=== PATIENT | female | born 1985 | race Caucasian/White ===

== ENCOUNTER 2019-10-23 00:21 | Inpatient (IN) ==
[2019-10-23] MEDS ORDERED: Ondansetron 4 MG/2 ML VIAL IVP PRN (02:31)
[2019-10-23] MEDS ORDERED: Naloxone 0.4 MG/ML INJ IVP PRN (02:31)
[2019-10-23] MEDS ORDERED: 0.9 % Sodium Chloride 1,000 ML IVC ONE (02:37)
[2019-10-23] MEDS ORDERED: Acetaminophen IV 1,000 MG/100 ML INFUS..BTL IVPB ONE (02:37)
[2019-10-23] MEDS ORDERED: Isovue-370 500 ML BOTTLE IVP ONE (02:41)
[2019-10-23 04:14] LABS: ABG Base Excess 2 mEq/L (-2 to 3); ABG HCO3 24 mEq/L (21-27); ABG Oxygen Saturation 97 % (95-98); ABG PCO2 28 mmHg (35-45); ABG PH 7.54 pH Units (7.32-7.45); ABG PO2 76 mmHg (85-104); ABG TCO2 25 mEq/L (20-26)
[2019-10-23] MEDS: Azithromycin 500 MG in 0.9 % Sodium Chloride 250 ML IVPB SCH (06:46)
[2019-10-23] MEDS: *HR* Heparin 5,000 UNIT/ML VIAL SQ SCH ×2 (06:48→17:37)
[2019-10-23 07:59] LABS: Alanine Aminotransferase 25 Units/L (7-52); Albumin 2.7 g/dL (3.5-5.7); Albumin/Globulin Ratio 0.9 (1.1-2.2); Alkaline Phosphatase 70 Units/L (34-104); Aspartate Amino Transferase 33 Units/L (13-39); BUN/Creatinine Ratio 75 (6-26); Bilirubin,Total 0.6 mg/dL (0.3-1.0); Blood Urea Nitrogen 15 mg/dL (6-20); Carbon Dioxide 22 mEq/L (23-29); Chloride 109 mEq/L (98-107); Glucose 105 mg/dL (70-105); Magnesium 1.7 mg/dL (1.6-2.6); Osmolality,Calculated 293 (280-300); Potassium 4.7 mEq/L (3.5-5.1); Sodium 141 mEq/L (136-145); Total Protein 5.7 g/dL (6.4-8.9); eGFR For African Americans > 60 (> 60); eGFR For Non-African Americans > 60 (> 60)
[2019-10-23 09:00] LABS: Adenovirus Not Detected (Not Detect); Bordetella Pertussis Not Detected (Not Detect); Chlamydophila pneumoniae Not Detected (Not Detect); Coronavirus 229E Not Detected (Not Detect); Coronavirus HKU1 Not Detected (Not Detect); Coronavirus NL63 Not Detected (Not Detect); Coronavirus OC43 Not Detected (Not Detect); Human Metapneumovirus Not Detected (Not Detect); Human Rhinovirus/Enterovirus Not Detected (Not Detect); Influenza A Subtype 2009 H1 Not Detected (Not Detect); Influenza B Not Detected (Not Detect); Mycoplasma pneumoniae Not Detected (Not Detect); Parainfluenza Virus 1 Not Detected (Not Detect); Parainfluenza Virus 2 Not Detected (Not Detect); Parainfluenza Virus 3 Not Detected (Not Detect); Parainfluenza Virus 4 Not Detected (Not Detect); Respiratory Syncytial Virus Not Detected (Not Detect)
[2019-10-23] MEDS ORDERED: levoFLOXacin 750 MG/150 ML 750 MG/150 ML BAG IVPB SCH (09:00)
[2019-10-23] MEDS ORDERED: Aminoglycoside Consult 1 EACH MC ONE (09:27)
[2019-10-23] MEDS: Dexmedetomidine HCl 400 MCG/100 ML MLS IVC SCH (10:38)
[2019-10-23] MEDS: Piperacillin/Tazobactam 3.375 GM in 0.9 % Sodium Chloride Mini Bag 100 ML IVPB SCH ×3 (10:38→23:39)
[2019-10-23 12:20] LABS: Basophils % 0.3 %; Hematocrit 33.7 % (35.3-44.9); Hemoglobin 10.6 g/dL (11.5-15.4); Immature Granulocytes % 1.4 % (0-4); Lymphocytes # 1.6 K/mcL (0.6-4.6); Lymphocytes % 15.3 %; Mean Corpuscular HGB Conc 31.5 g/dL (31.6-35.5); Mean Corpuscular Hemoglobin 29.9 pg (28.0-33.3); Mean Corpuscular Volume 95.2 fL (83.0-100.0); Mean Platelet Volume 10.5 fL (9.4-12.4); Monocytes # 1.2 K/mcL (0.0-1.3); Monocytes % 11.2 %; Neutrophils # 7.5 K/mcL (1.6-8.9); Platelet Count 213 K/mcL (140-400); Red Blood Count 3.54 M/mcL (3.82-4.97); Red Cell Distribution Width 15.1 % (11.5-14.5); Segmented Neutrophils % 71.8 %; White Blood Count 10.5 K/mcL (4.3-11.1)
[2019-10-23] MEDS ORDERED: Ringers Solution, Lactated 1,000 ML IVC SCH (18:30)
[2019-10-23] MEDS: levETIRAcetam 500 MG/5 ML UDC GTUBE SCH (23:38)
[2019-10-23] MEDS: Valproic Acid Oral Soln 250 MG/5 ML UDC GTUBE SCH (23:38)
[2019-10-24] MEDS: Azithromycin 500 MG in 0.9 % Sodium Chloride 250 ML IVPB SCH (02:16)
[2019-10-24] MEDS: Dexmedetomidine HCl 400 MCG/100 ML MLS IVC SCH (02:18)
[2019-10-24 02:27] LABS: Red Cell Distribution Width 14.9 % (11.5-14.5)
[2019-10-24 02:28] LABS: Basophils # 0.1 K/mcL (0.0-0.2); Basophils % 0.7 %; Hematocrit 33.5 % (35.3-44.9); Immature Granulocytes % 1.6 % (0-4); Lymphocytes # 1.4 K/mcL (0.6-4.6); Lymphocytes % 18.1 %; Mean Corpuscular HGB Conc 31.3 g/dL (31.6-35.5); Mean Corpuscular Hemoglobin 30.9 pg (28.0-33.3); Mean Corpuscular Volume 98.5 fL (83.0-100.0); Mean Platelet Volume 11.5 fL (9.4-12.4); Monocytes # 0.8 K/mcL (0.0-1.3); Monocytes % 10.9 %; Neutrophils # 5.2 K/mcL (1.6-8.9); Platelet Count 190 K/mcL (140-400); Segmented Neutrophils % 68.7 %; White Blood Count 7.6 K/mcL (4.3-11.1)
[2019-10-24 02:29] LABS: Hemoglobin 10.5 g/dL (11.5-15.4)
[2019-10-24 02:40] LABS: BUN/Creatinine Ratio 71 (6-26); Blood Urea Nitrogen 15 mg/dL (6-20); Calcium 8.6 mg/dL (8.6-10.3); Carbon Dioxide 26 mEq/L (23-29); Chloride 108 mEq/L (98-107); Glucose 121 mg/dL (70-105); Osmolality,Calculated 292 (280-300); Potassium 4.1 mEq/L (3.5-5.1); Sodium 140 mEq/L (136-145); eGFR For African Americans > 60 (> 60); eGFR For Non-African Americans > 60 (> 60)
[2019-10-24 02:48] LABS: Platelet Estimate Normal (Normal)
[2019-10-24 05:17] LABS: ABG Base Excess 10 mEq/L (-2 to 3); ABG HCO3 31 mEq/L (21-27); ABG Oxygen Saturation 100 % (95-98); ABG PCO2 28 mmHg (35-45); ABG PH 7.65 pH Units (7.32-7.45); ABG PO2 158 mmHg (85-104); ABG TCO2 32 mEq/L (20-26); Blood Gas Modality AF; Blood Gas VT 430 cc
[2019-10-24] MEDS: *HR* Heparin 5,000 UNIT/ML VIAL SQ SCH ×2 (06:06→18:20)
[2019-10-24] MEDS ORDERED: Acetaminophen IV 1,000 MG/100 ML INFUS..BTL IVPB ONE (07:39)
[2019-10-24] MEDS: levETIRAcetam 500 MG/5 ML UDC GTUBE SCH ×2 (08:39→20:19)
[2019-10-24] MEDS: Valproic Acid Oral Soln 250 MG/5 ML UDC GTUBE SCH ×3 (08:40→20:20)
[2019-10-24] MEDS: FentaNYL (PF) 1,000 MCG in 0.9 % Sodium Chloride 80 ML IVC SCH ×2 (08:41→21:51)
[2019-10-24] MEDS: Meropenem 1,000 MG in Water for inj. (sterile) 20 ML IVP SCH ×2 (08:48→18:20)
[2019-10-24] MEDS ORDERED: 0.9 % Sodium Chloride 1,000 ML IVC ONE (11:11)
[2019-10-24] MEDS ORDERED: Ringers Solution, Lactated 500 ML IVC ONE (13:05)
[2019-10-24] MEDS ORDERED: Ringers Solution, Lactated 1,000 ML ONE (13:19)
[2019-10-24] MEDS ORDERED: 0.9 % Sodium Chloride 250 ML ONE (13:30)
[2019-10-24 14:22] LABS: ABG Base Excess 3 mEq/L (-2 to 3); ABG HCO3 28 mEq/L (21-27); ABG Oxygen Saturation 96 % (95-98); ABG PCO2 43 mmHg (35-45); ABG PH 7.42 pH Units (7.32-7.45); ABG PO2 82 mmHg (85-104); ABG TCO2 29 mEq/L (20-26)
[2019-10-25] MEDS: Azithromycin 500 MG in 0.9 % Sodium Chloride 250 ML IVPB SCH (02:56)
[2019-10-25] MEDS: Meropenem 1,000 MG in Water for inj. (sterile) 20 ML IVP SCH ×2 (05:53→16:19)
[2019-10-25] MEDS: *HR* Heparin 5,000 UNIT/ML VIAL SQ SCH ×2 (05:53→16:20)
[2019-10-25 06:07] LABS: Basophils # 0.1 K/mcL (0.0-0.2); Basophils % 0.9 %; Hematocrit 33.2 % (35.3-44.9); Hemoglobin 10.1 g/dL (11.5-15.4); Immature Granulocytes % 1.8 % (0-4); Lymphocytes # 1.4 K/mcL (0.6-4.6); Lymphocytes % 26.2 %; Mean Corpuscular HGB Conc 30.4 g/dL (31.6-35.5); Mean Corpuscular Hemoglobin 29.5 pg (28.0-33.3); Mean Corpuscular Volume 97.1 fL (83.0-100.0); Mean Platelet Volume 11.2 fL (9.4-12.4); Monocytes # 0.7 K/mcL (0.0-1.3); Monocytes % 11.9 %; Neutrophils # 3.2 K/mcL (1.6-8.9); Platelet Count 189 K/mcL (140-400); Red Blood Count 3.42 M/mcL (3.82-4.97); Red Cell Distribution Width 14.3 % (11.5-14.5); Segmented Neutrophils % 59.2 %; White Blood Count 5.5 K/mcL (4.3-11.1)
[2019-10-25 06:31] LABS: Alanine Aminotransferase 19 Units/L (7-52); Albumin 2.5 g/dL (3.5-5.7); Albumin/Globulin Ratio 0.9 (1.1-2.2); Alkaline Phosphatase 51 Units/L (34-104); Aspartate Amino Transferase 23 Units/L (13-39); Bilirubin,Total 0.4 mg/dL (0.3-1.0); Blood Urea Nitrogen 11 mg/dL (6-20); Calcium 8.1 mg/dL (8.6-10.3); Carbon Dioxide 28 mEq/L (23-29); Chloride 104 mEq/L (98-107); Globulin 2.8 g/dL (2.4-3.5); Glucose 118 mg/dL (70-105); Magnesium 1.5 mg/dL (1.6-2.6); Osmolality,Calculated 284 (280-300); Potassium 3.9 mEq/L (3.5-5.1); Sodium 137 mEq/L (136-145); Total Protein 5.3 g/dL (6.4-8.9)
[2019-10-25] MEDS: levETIRAcetam 500 MG/5 ML UDC GTUBE SCH ×2 (09:02→20:23)
[2019-10-25] MEDS: Valproic Acid Oral Soln 250 MG/5 ML UDC GTUBE SCH ×3 (09:03→20:23)
[2019-10-25] MEDS: Dexmedetomidine HCl 400 MCG/100 ML MLS IVC SCH (09:25)
[2019-10-25] MEDS: FentaNYL (PF) 1,000 MCG in 0.9 % Sodium Chloride 80 ML IVC SCH ×2 (10:53→23:23)
[2019-10-25] MEDS: Ringers Solution, Lactated 1,000 ML IVC SCH ×2 (12:19→20:23)
[2019-10-25] MEDS: Nystatin SUSP 5 ML UD.LIQ PO SCH ×2 (17:31→20:24)
[2019-10-25] MEDS: Chlorhexidine Rinse 15 ML MOUTHWASH MM SCH (20:23)
[2019-10-25] MEDS: Lacri-Lube 3.5 GM TUBE OP SCH (20:24)
[2019-10-25] MEDS: RaNITIdine Oral Soln 75 MG/5 ML UDC GTUBE SCH (20:25)
[2019-10-26] MEDS: Azithromycin 500 MG in 0.9 % Sodium Chloride 250 ML IVPB SCH (02:51)
[2019-10-26 05:00] LABS: Basophils % 0.7 %; Hematocrit 31.6 % (35.3-44.9); Hemoglobin 9.5 g/dL (11.5-15.4); Immature Granulocytes % 1.6 % (0-4); Lymphocytes # 1.1 K/mcL (0.6-4.6); Lymphocytes % 24.3 %; Mean Corpuscular HGB Conc 30.1 g/dL (31.6-35.5); Mean Corpuscular Hemoglobin 29.5 pg (28.0-33.3); Mean Corpuscular Volume 98.1 fL (83.0-100.0); Mean Platelet Volume 11.7 fL (9.4-12.4); Monocytes # 0.5 K/mcL (0.0-1.3); Monocytes % 11.7 %; Neutrophils # 2.8 K/mcL (1.6-8.9); Platelet Count 199 K/mcL (140-400); Red Blood Count 3.22 M/mcL (3.82-4.97); Red Cell Distribution Width 14.2 % (11.5-14.5); Segmented Neutrophils % 61.7 %; White Blood Count 4.5 K/mcL (4.3-11.1)
[2019-10-26] MEDS: Ringers Solution, Lactated 1,000 ML IVC SCH ×2 (05:25→21:07)
[2019-10-26 05:34] LABS: Alanine Aminotransferase 22 Units/L (7-52); Albumin 2.5 g/dL (3.5-5.7); Albumin/Globulin Ratio 0.9 (1.1-2.2); Alkaline Phosphatase 58 Units/L (34-104); Aspartate Amino Transferase 27 Units/L (13-39); Bilirubin,Total 0.3 mg/dL (0.3-1.0); Blood Urea Nitrogen 11 mg/dL (6-20); Calcium 8.2 mg/dL (8.6-10.3); Carbon Dioxide 31 mEq/L (23-29); Chloride 100 mEq/L (98-107); Globulin 2.8 g/dL (2.4-3.5); Glucose 111 mg/dL (70-105); Magnesium 1.5 mg/dL (1.6-2.6); Osmolality,Calculated 280 (280-300); Phosphorous 3.5 mg/dL (2.7-4.5); Potassium 4.6 mEq/L (3.5-5.1); Sodium 135 mEq/L (136-145); Total Protein 5.3 g/dL (6.4-8.9)
[2019-10-26] MEDS: *HR* Heparin 5,000 UNIT/ML VIAL SQ SCH ×2 (05:46→16:08)
[2019-10-26] MEDS: Meropenem 1,000 MG in Water for inj. (sterile) 20 ML IVP SCH ×2 (05:47→18:31)
[2019-10-26] MEDS: Valproic Acid Oral Soln 250 MG/5 ML UDC GTUBE SCH ×3 (07:47→20:44)
[2019-10-26] MEDS: levETIRAcetam 500 MG/5 ML UDC GTUBE SCH ×2 (07:47→20:44)
[2019-10-26] MEDS: Chlorhexidine Rinse 15 ML MOUTHWASH MM SCH ×2 (07:47→20:44)
[2019-10-26] MEDS: Nystatin SUSP 5 ML UD.LIQ PO SCH ×4 (07:49→20:43)
[2019-10-26] MEDS: polyethylene glycoL 3350 17 GM POWD.PACK PO SCH (07:49)
[2019-10-26] MEDS: Lacri-Lube 3.5 GM TUBE OP SCH ×2 (07:51→21:06)
[2019-10-26] MEDS ORDERED: Aminoglycoside Consult 1 EACH MC ONE (09:29)
[2019-10-26 09:53] LABS: Blood Urea Nitrogen 10 mg/dL (6-20); Calcium 8.2 mg/dL (8.6-10.3); Carbon Dioxide 29 mEq/L (23-29); Chloride 98 mEq/L (98-107); Glucose 123 mg/dL (70-105); Osmolality,Calculated 276 (280-300); Potassium 4.6 mEq/L (3.5-5.1); Sodium 133 mEq/L (136-145)
[2019-10-26 19:34] LABS: Acinetobacter baumannii by PCR Not Detected (Not Detect); Candida albicans by PCR Not Detected (Not Detect); Candida glabrata by PCR Not Detected (Not Detect); Enterobacter cloacae Cmplx PCR Not Detected (Not Detect); Enterobacteriaceae by PCR Not Detected (Not Detect); Enterococcus by PCR Not Detected (Not Detect); Escherichia coli by PCR Not Detected (Not Detect); Klebsiella oxytoca by PCR Not Detected (Not Detect); Klebsiella pneumoniae by PCR Not Detected (Not Detect); Proteus by PCR Not Detected (Not Detect); Pseudomonas aeruginosa by PCR Not Detected (Not Detect); Serratia marcescens by PCR Not Detected (Not Detect); Staphylococcus aureus by PCR Not Detected (Not Detect); Staphylococcus by PCR DETECTED (Not Detect); Streptococcus agalactiae(B)PCR Not Detected (Not Detect); Streptococcus by PCR Not Detected (Not Detect); Streptococcus pneumoniae PCR Not Detected (Not Detect); Streptococcus pyogenes (A) PCR Not Detected (Not Detect); blaKPC Carbapenem-Resist Gene Not Detected (Not Detect); mecA Methicillin-Resist Gene DETECTED (Not Detect); vanA/B Vancomycin-Resist Genes Not Detected (Not Detect)
[2019-10-26 19:35] LABS: Candida krusei by PCR Not Detected (Not Detect); Candida parapsilosis by PCR Not Detected (Not Detect); Candida tropicalis by PCR Not Detected (Not Detect)
[2019-10-26] MEDS: RaNITIdine Oral Soln 75 MG/5 ML UDC GTUBE SCH (21:06)
[2019-10-26] MEDS: Dexmedetomidine HCl 400 MCG/100 ML MLS IVC SCH ×2 (21:22→22:20)
[2019-10-27 02:40] LABS: Basophils % 0.5 %; Hematocrit 27.4 % (35.3-44.9); Hemoglobin 8.3 g/dL (11.5-15.4); Immature Granulocytes % 2.6 % (0-4); Lymphocytes # 1.4 K/mcL (0.6-4.6); Lymphocytes % 32.7 %; Mean Corpuscular HGB Conc 30.3 g/dL (31.6-35.5); Mean Corpuscular Hemoglobin 29.4 pg (28.0-33.3); Mean Corpuscular Volume 97.2 fL (83.0-100.0); Mean Platelet Volume 11.9 fL (9.4-12.4); Monocytes # 0.5 K/mcL (0.0-1.3); Monocytes % 11.6 %; Neutrophils # 2.2 K/mcL (1.6-8.9); Platelet Count 186 K/mcL (140-400); Red Blood Count 2.82 M/mcL (3.82-4.97); Segmented Neutrophils % 52.6 %; White Blood Count 4.2 K/mcL (4.3-11.1)
[2019-10-27 02:59] LABS: Alanine Aminotransferase 22 Units/L (7-52); Albumin 2.3 g/dL (3.5-5.7); Albumin/Globulin Ratio 0.9 (1.1-2.2); Alkaline Phosphatase 53 Units/L (34-104); Aspartate Amino Transferase 31 Units/L (13-39); Bilirubin,Total 0.2 mg/dL (0.3-1.0); Blood Urea Nitrogen 12 mg/dL (6-20); Calcium 8.3 mg/dL (8.6-10.3); Carbon Dioxide 32 mEq/L (23-29); Chloride 97 mEq/L (98-107); Globulin 2.7 g/dL (2.4-3.5); Glucose 134 mg/dL (70-105); Osmolality,Calculated 278 (280-300); Phosphorous 3.6 mg/dL (2.7-4.5); Potassium 4.3 mEq/L (3.5-5.1); Sodium 133 mEq/L (136-145)
[2019-10-27 03:54] LABS: ABG Base Excess 9 mEq/L (-2 to 3); ABG HCO3 32 mEq/L (21-27); ABG Oxygen Saturation 100 % (95-98); ABG PCO2 37 mmHg (35-45); ABG PH 7.54 pH Units (7.32-7.45); ABG PO2 164 mmHg (85-104); ABG TCO2 33 mEq/L (20-26); Blood Gas Modality ASSIST CONTROL; Blood Gas VT 480 cc
[2019-10-27] MEDS: *HR* Heparin 5,000 UNIT/ML VIAL SQ SCH ×2 (05:05→18:21)
[2019-10-27] MEDS: Meropenem 1,000 MG in Water for inj. (sterile) 20 ML IVP SCH (05:06)
[2019-10-27] MEDS: FentaNYL (PF) 1,000 MCG in 0.9 % Sodium Chloride 80 ML IVC SCH (05:07)
[2019-10-27] MEDS: levETIRAcetam 500 MG/5 ML UDC GTUBE SCH ×2 (07:40→19:48)
[2019-10-27] MEDS: Chlorhexidine Rinse 15 ML MOUTHWASH MM SCH ×2 (07:41→19:48)
[2019-10-27] MEDS: Valproic Acid Oral Soln 250 MG/5 ML UDC GTUBE SCH ×2 (07:41→19:48)
[2019-10-27] MEDS: polyethylene glycoL 3350 17 GM POWD.PACK PO SCH (07:41)
[2019-10-27] MEDS: Nystatin SUSP 5 ML UD.LIQ PO SCH ×4 (07:41→19:49)
[2019-10-27] MEDS: Lacri-Lube 3.5 GM TUBE OP SCH (07:42)
[2019-10-27 09:09] LABS: Blood Urea Nitrogen 13 mg/dL (6-20); Calcium 8.1 mg/dL (8.6-10.3); Carbon Dioxide 33 mEq/L (23-29); Chloride 97 mEq/L (98-107); Glucose 134 mg/dL (70-105); Magnesium 1.5 mg/dL (1.6-2.6); Osmolality,Calculated 278 (280-300); Potassium 4.2 mEq/L (3.5-5.1); Sodium 133 mEq/L (136-145)
[2019-10-27] MEDS: Dexmedetomidine HCl 400 MCG/100 ML MLS IVC SCH ×2 (13:18→14:30)
[2019-10-27] MEDS ORDERED: Ondansetron 4 MG/2 ML VIAL IVP PRN (15:01)
[2019-10-27] MEDS ORDERED: FentaNYL (PF) 1,000 MCG in 0.9 % Sodium Chloride 80 ML IVC SCH (15:01)
[2019-10-27] MEDS ORDERED: Naloxone 0.4 MG/ML INJ IVP PRN (15:01)
[2019-10-27] MEDS ORDERED: WATER IVPB SCH (16:00)
[2019-10-27] MEDS ORDERED: D5 IVPB SCH (16:00)
[2019-10-27] MEDS ORDERED: CEFTAZIDIME IVPB SCH (16:00)
[2019-10-27] MEDS ORDERED: AVIBACTAM IVPB SCH (16:00)
[2019-10-27] MEDS: CEFTAZIDIME IVPB SCH ×2 (16:29→22:49)
[2019-10-27] MEDS: WATER IVPB SCH ×2 (16:29→22:49)
[2019-10-27] MEDS: AVIBACTAM IVPB SCH ×2 (16:29→22:49)
[2019-10-27] MEDS: D5 IVPB SCH ×2 (16:29→22:49)
[2019-10-27] MEDS ORDERED: Oseltamivir 6 MG/ML MLS PO SCH (18:00)
[2019-10-27] MEDS: Oseltamivir 6 MG/ML MLS PO SCH (18:22)
[2019-10-28] MEDS: Dexmedetomidine HCl 400 MCG/100 ML MLS IVC SCH ×2 (02:51→21:16)
[2019-10-28 03:24] LABS: Hematocrit 29.4 % (35.3-44.9); Hemoglobin 9.1 g/dL (11.5-15.4); Mean Corpuscular Hemoglobin 29.4 pg (28.0-33.3); Mean Corpuscular Volume 95.1 fL (83.0-100.0); Mean Platelet Volume 12.1 fL (9.4-12.4); Platelet Count 254 K/mcL (140-400); Red Blood Count 3.09 M/mcL (3.82-4.97); White Blood Count 5.1 K/mcL (4.3-11.1)
[2019-10-28 03:47] LABS: Blood Urea Nitrogen 10 mg/dL (6-20); Calcium 8.3 mg/dL (8.6-10.3); Carbon Dioxide 33 mEq/L (23-29); Chloride 98 mEq/L (98-107); Glucose 125 mg/dL (70-105); Osmolality,Calculated 281 (280-300); Potassium 4.2 mEq/L (3.5-5.1); Sodium 135 mEq/L (136-145)
[2019-10-28] MEDS: *HR* Heparin 5,000 UNIT/ML VIAL SQ SCH ×2 (05:59→16:48)
[2019-10-28] MEDS: Oseltamivir 6 MG/ML MLS PO SCH ×2 (06:00→17:50)
[2019-10-28] MEDS: Lacri-Lube 3.5 GM TUBE OP SCH ×3 (08:47→20:48)
[2019-10-28] MEDS: polyethylene glycoL 3350 17 GM POWD.PACK PO SCH (09:09)
[2019-10-28] MEDS: Chlorhexidine Rinse 15 ML MOUTHWASH MM SCH ×2 (09:09→20:18)
[2019-10-28] MEDS: Nystatin SUSP 5 ML UD.LIQ PO SCH ×4 (09:09→20:18)
[2019-10-28] MEDS: levETIRAcetam 500 MG/5 ML UDC GTUBE SCH ×2 (09:10→20:17)
[2019-10-28] MEDS: Valproic Acid Oral Soln 250 MG/5 ML UDC GTUBE SCH ×3 (09:11→20:17)
[2019-10-28] MEDS: WATER IVPB SCH ×3 (09:11→23:46)
[2019-10-28] MEDS: CEFTAZIDIME IVPB SCH ×3 (09:11→23:46)
[2019-10-28] MEDS: D5 IVPB SCH ×3 (09:11→23:46)
[2019-10-28] MEDS: AVIBACTAM IVPB SCH ×3 (09:11→23:46)
[2019-10-28] MEDS ORDERED: Calcium Gluconate 1gm/50mL 1 GM/50 ML BAG IVPB ONE ×2 (21:15)
[2019-10-28] MEDS ORDERED: *HR* Metoprolol 5 MG/5 ML VIAL IVP ONE (21:15)
[2019-10-29 05:16] LABS: Hematocrit 33.5 % (35.3-44.9); Hemoglobin 10.4 g/dL (11.5-15.4); Mean Corpuscular Hemoglobin 29.1 pg (28.0-33.3); Mean Corpuscular Volume 93.8 fL (83.0-100.0); Mean Platelet Volume 11.4 fL (9.4-12.4); Platelet Count 369 K/mcL (140-400); Red Blood Count 3.57 M/mcL (3.82-4.97); Red Cell Distribution Width 14.1 % (11.5-14.5); White Blood Count 6.4 K/mcL (4.3-11.1)
[2019-10-29 05:37] LABS: Blood Urea Nitrogen 9 mg/dL (6-20); Calcium 8.6 mg/dL (8.6-10.3); Carbon Dioxide 24 mEq/L (23-29); Chloride 98 mEq/L (98-107); Glucose 124 mg/dL (70-105); Magnesium 1.8 mg/dL (1.6-2.6); Osmolality,Calculated 276 (280-300); Potassium 4.1 mEq/L (3.5-5.1); Sodium 133 mEq/L (136-145)
[2019-10-29 05:51] LABS: Lymphocytes # 0.8 K/mcL (0.6-4.6); Monocytes # 0.5 K/mcL (0.0-1.3); Neutrophils # 4.9 K/mcL (1.6-8.9); Platelet Estimate Normal (Normal)
[2019-10-29] MEDS: *HR* Heparin 5,000 UNIT/ML VIAL SQ SCH ×2 (06:20→17:33)
[2019-10-29] MEDS: Oseltamivir 6 MG/ML MLS PO SCH ×2 (06:21→17:32)
[2019-10-29] MEDS: Valproic Acid Oral Soln 250 MG/5 ML UDC GTUBE SCH ×3 (08:38→21:13)
[2019-10-29] MEDS: Chlorhexidine Rinse 15 ML MOUTHWASH MM SCH ×2 (08:38→21:13)
[2019-10-29] MEDS: Nystatin SUSP 5 ML UD.LIQ PO SCH ×4 (08:39→21:13)
[2019-10-29] MEDS: levETIRAcetam 500 MG/5 ML UDC GTUBE SCH ×2 (08:40→21:13)
[2019-10-29] MEDS: polyethylene glycoL 3350 17 GM POWD.PACK PO SCH (08:41)
[2019-10-29] MEDS: Lacri-Lube 3.5 GM TUBE OP SCH ×2 (08:43→21:51)
[2019-10-29] MEDS: AVIBACTAM IVPB SCH ×2 (09:24→15:59)
[2019-10-29] MEDS: WATER IVPB SCH ×2 (09:24→15:59)
[2019-10-29] MEDS: D5 IVPB SCH ×2 (09:24→15:59)
[2019-10-29] MEDS: CEFTAZIDIME IVPB SCH ×2 (09:24→15:59)
[2019-10-29] MEDS: Dexmedetomidine HCl 400 MCG/100 ML MLS IVC SCH (10:20)
[2019-10-29] MEDS ORDERED: Acetaminophen IV 500 MG/50 ML INFUS..BTL IVPB ONE (10:54)
[2019-10-29] MEDS ORDERED: *HR* Propofol 200 MG/20 ML VIAL IVP ONE (11:04)
[2019-10-29] MEDS ORDERED: Permethrin Cream Rinse 60 ML LIQUID TP ONE (16:51)
[2019-10-29 17:12] LABS: Adenovirus F 40/41 PCR Not detected (Not detect); Astrovirus PCR Not detected (Not detect); C.difficile Toxin A/B Gene PCR Not detected (Not detect); Campylobacter by PCR Not detected (Not detect); Cryptosporidium by PCR Not detected (Not detect); Cyclospora cayetanensis PCR Not detected (Not detect); E. coli O157 by PCR Not detected (Not detect); Entamoeba histolytica PCR Not detected (Not detect); Enteroaggregative E.coli(EAEC) Not detected (Not detect); Enteropathogenic E.coli(EPEC) Not detected (Not detect); Enterotoxigenic E.coli (ETEC) Not detected (Not detect); Giardia lamblia PCR Not detected (Not detect); Norovirus GI/GII PCR Not detected (Not detect); Plesiomonas shigelloides PCR Not detected (Not detect); Rotavirus A PCR Not detected (Not detect); Salmonella PCR Not detected (Not detect); Sapovirus PCR Not detected (Not detect); Shig/EnteroinvasiveE coli EIEC Not detected (Not detect); Shigalike tox-prod E coli STEC Not detected (Not detect); Vibrio PCR Not detected (Not detect); Vibrio cholerae PCR Not detected (Not detect); Yersinia enterocolitica PCR Not detected (Not detect)
[2019-10-30] MEDS: D5 IVPB SCH ×4 (01:02→16:16)
[2019-10-30] MEDS: CEFTAZIDIME IVPB SCH ×4 (01:02→16:16)
[2019-10-30] MEDS: WATER IVPB SCH ×4 (01:02→16:16)
[2019-10-30] MEDS: AVIBACTAM IVPB SCH ×4 (01:02→16:16)
[2019-10-30] MEDS ORDERED: Acetaminophen IV 500 MG/50 ML INFUS..BTL IVPB ONE (01:25)
[2019-10-30] MEDS: *HR* Heparin 5,000 UNIT/ML VIAL SQ SCH ×2 (05:56→17:19)
[2019-10-30] MEDS: Oseltamivir 6 MG/ML MLS GTUBE SCH ×2 (05:57→17:21)
[2019-10-30] MEDS: Dexmedetomidine HCl 400 MCG/100 ML MLS IVC SCH ×2 (07:00→15:54)
[2019-10-30] MEDS: Lacri-Lube 3.5 GM TUBE OP SCH ×3 (08:07→21:52)
[2019-10-30] MEDS: Valproic Acid Oral Soln 250 MG/5 ML UDC GTUBE SCH ×4 (08:07→21:50)
[2019-10-30] MEDS: levETIRAcetam 500 MG/5 ML UDC GTUBE SCH ×3 (08:07→21:49)
[2019-10-30] MEDS: Chlorhexidine Rinse 15 ML MOUTHWASH MM SCH ×3 (08:07→21:52)
[2019-10-30] MEDS: polyethylene glycoL 3350 17 GM POWD.PACK PO SCH (08:08)
[2019-10-30] MEDS: Nystatin SUSP 5 ML UD.LIQ PO SCH ×5 (08:08→21:50)
[2019-10-30 10:27] LABS: Basophils % 0.5 %; Hematocrit 29.5 % (35.3-44.9); Hemoglobin 9.1 g/dL (11.5-15.4); Immature Granulocytes % 4.6 % (0-4); Lymphocytes # 1.2 K/mcL (0.6-4.6); Lymphocytes % 19.3 %; Mean Corpuscular HGB Conc 30.8 g/dL (31.6-35.5); Mean Corpuscular Hemoglobin 29.2 pg (28.0-33.3); Mean Corpuscular Volume 94.6 fL (83.0-100.0); Mean Platelet Volume 11.2 fL (9.4-12.4); Monocytes # 0.8 K/mcL (0.0-1.3); Platelet Count 312 K/mcL (140-400); Red Blood Count 3.12 M/mcL (3.82-4.97); Red Cell Distribution Width 14.6 % (11.5-14.5); Segmented Neutrophils % 63.6 %; White Blood Count 6.3 K/mcL (4.3-11.1)
[2019-10-30] MEDS ORDERED: Acetaminophen IV 1,000 MG/100 ML INFUS..BTL IVPB ONE ×2 (10:58→22:47)
[2019-10-30 11:07] LABS: Blood Urea Nitrogen 8 mg/dL (6-20); Calcium 8.3 mg/dL (8.6-10.3); Carbon Dioxide 29 mEq/L (23-29); Chloride 101 mEq/L (98-107); Glucose 107 mg/dL (70-105); Magnesium 1.7 mg/dL (1.6-2.6); Osmolality,Calculated 281 (280-300); Potassium 3.5 mEq/L (3.5-5.1); Sodium 136 mEq/L (136-145)
[2019-10-30] MEDS ORDERED: Potassium Chloride Elixir 20 MEQ/15 ML UDC GTUBE ONE (12:00)
[2019-10-30 13:14] LABS: Appearance of Body Fluid Clear (Clear); Volume of Body Fluid 13 mL
[2019-10-31] MEDS: D5 IVPB SCH ×3 (01:59→18:59)
[2019-10-31] MEDS: WATER IVPB SCH ×3 (01:59→18:59)
[2019-10-31] MEDS: CEFTAZIDIME IVPB SCH ×3 (01:59→18:59)
[2019-10-31] MEDS: AVIBACTAM IVPB SCH ×3 (01:59→18:59)
[2019-10-31] MEDS: Dexmedetomidine HCl 400 MCG/100 ML MLS IVC SCH (06:03)
[2019-10-31] MEDS: Oseltamivir 6 MG/ML MLS GTUBE SCH ×2 (06:10→17:22)
[2019-10-31] MEDS: *HR* Heparin 5,000 UNIT/ML VIAL SQ SCH ×2 (06:10→17:21)
[2019-10-31] MEDS: Valproic Acid Oral Soln 250 MG/5 ML UDC GTUBE SCH ×3 (08:11→21:45)
[2019-10-31] MEDS: Chlorhexidine Rinse 15 ML MOUTHWASH MM SCH ×2 (08:11→21:46)
[2019-10-31] MEDS: Nystatin SUSP 5 ML UD.LIQ PO SCH ×4 (08:11→21:45)
[2019-10-31] MEDS: levETIRAcetam 500 MG/5 ML UDC GTUBE SCH ×2 (08:11→21:45)
[2019-10-31] MEDS: polyethylene glycoL 3350 17 GM POWD.PACK PO SCH ×2 (08:13→09:37)
[2019-10-31 09:28] LABS: Basophils % 0.3 %; Hematocrit 29.3 % (35.3-44.9); Hemoglobin 9.1 g/dL (11.5-15.4); Immature Granulocytes % 2.8 % (0-4); Lymphocytes # 1.5 K/mcL (0.6-4.6); Lymphocytes % 21.7 %; Mean Corpuscular HGB Conc 31.1 g/dL (31.6-35.5); Mean Corpuscular Hemoglobin 29.3 pg (28.0-33.3); Mean Corpuscular Volume 94.2 fL (83.0-100.0); Mean Platelet Volume 11.2 fL (9.4-12.4); Monocytes # 0.5 K/mcL (0.0-1.3); Monocytes % 7.2 %; Neutrophils # 4.8 K/mcL (1.6-8.9); Platelet Count 344 K/mcL (140-400); Red Blood Count 3.11 M/mcL (3.82-4.97); Red Cell Distribution Width 14.6 % (11.5-14.5); White Blood Count 7.1 K/mcL (4.3-11.1)
[2019-10-31] MEDS: Lacri-Lube 3.5 GM TUBE OP SCH ×2 (09:39→21:50)
[2019-10-31 09:49] LABS: Lactate Dehydrogenase 246 Units/L (140-271)
[2019-10-31 10:00] LABS: Blood Urea Nitrogen 9 mg/dL (6-20); C-Reactive Protein 91 mg/L (Less than 10); Calcium 8.1 mg/dL (8.6-10.3); Carbon Dioxide 29 mEq/L (23-29); Chloride 100 mEq/L (98-107); Glucose 127 mg/dL (70-105); Osmolality,Calculated 278 (280-300); Sodium 134 mEq/L (136-145)
[2019-10-31 10:07] LABS: Ferritin 241 ng/mL (10-120)
[2019-10-31] MEDS ORDERED: Isovue-370 500 ML BOTTLE IVP ONE (12:18)
[2019-10-31] MEDS ORDERED: COLISTIN IVPB ONE (15:57)
[2019-10-31] MEDS ORDERED: SODIUM CHLORIDE 0.9% IVPB ONE (15:57)
[2019-10-31] MEDS ORDERED: Colistin (Colistimethate) 300 MG in 0.9 % Sodium Chloride 50 ML IVPB ONE (16:30)
[2019-11-01] MEDS: D5 IVPB SCH ×3 (00:36→18:33)
[2019-11-01] MEDS: AVIBACTAM IVPB SCH ×3 (00:36→18:33)
[2019-11-01] MEDS: WATER IVPB SCH ×3 (00:36→18:33)
[2019-11-01] MEDS: CEFTAZIDIME IVPB SCH ×3 (00:36→18:33)
[2019-11-01] MEDS ORDERED: Colistin (Colistimethate) 180 MG in 0.9 % Sodium Chloride 50 ML IVPB SCH ×2 (02:00→04:00)
[2019-11-01] MEDS ORDERED: SODIUM CHLORIDE 0.9% IVPB SCH (02:00)
[2019-11-01] MEDS ORDERED: COLISTIN IVPB SCH (02:00)
[2019-11-01] MEDS ORDERED: Colistin (Colistimethate) 150 MG in 0.9 % Sodium Chloride 50 ML IVPB SCH (04:00)
[2019-11-01] MEDS: *HR* Heparin 5,000 UNIT/ML VIAL SQ SCH ×2 (05:45→16:56)
[2019-11-01] MEDS: Colistin (Colistimethate) 150 MG in 0.9 % Sodium Chloride 50 ML IVPB SCH ×2 (05:45→16:49)
[2019-11-01] MEDS: Lacri-Lube 3.5 GM TUBE OP SCH ×2 (08:03→21:14)
[2019-11-01] MEDS: polyethylene glycoL 3350 17 GM POWD.PACK PO SCH (08:03)
[2019-11-01] MEDS: Chlorhexidine Rinse 15 ML MOUTHWASH MM SCH ×2 (08:04→21:12)
[2019-11-01] MEDS: Nystatin SUSP 5 ML UD.LIQ PO SCH ×4 (08:04→21:13)
[2019-11-01] MEDS: Oseltamivir 6 MG/ML MLS GTUBE SCH ×2 (08:04→16:56)
[2019-11-01] MEDS: Valproic Acid Oral Soln 250 MG/5 ML UDC GTUBE SCH ×3 (08:04→21:12)
[2019-11-01] MEDS: levETIRAcetam 500 MG/5 ML UDC GTUBE SCH ×2 (08:04→21:13)
[2019-11-01 09:10] LABS: Basophils # 0.1 K/mcL (0.0-0.2); Basophils % 0.7 %; Hematocrit 26.8 % (35.3-44.9); Hemoglobin 8.2 g/dL (11.5-15.4); Lymphocytes # 1.5 K/mcL (0.6-4.6); Lymphocytes % 20.8 %; Mean Corpuscular HGB Conc 30.6 g/dL (31.6-35.5); Mean Corpuscular Hemoglobin 28.9 pg (28.0-33.3); Mean Corpuscular Volume 94.4 fL (83.0-100.0); Mean Platelet Volume 11.4 fL (9.4-12.4); Monocytes # 0.5 K/mcL (0.0-1.3); Monocytes % 6.5 %; Neutrophils # 4.8 K/mcL (1.6-8.9); Platelet Count 220 K/mcL (140-400); Red Blood Count 2.84 M/mcL (3.82-4.97); Red Cell Distribution Width 14.6 % (11.5-14.5); White Blood Count 7.2 K/mcL (4.3-11.1)
[2019-11-01 09:49] LABS: Alanine Aminotransferase 21 Units/L (7-52); Albumin 2.4 g/dL (3.5-5.7); Albumin/Globulin Ratio 0.9 (1.1-2.2); Alkaline Phosphatase 50 Units/L (34-104); Aspartate Amino Transferase 23 Units/L (13-39); Bilirubin,Indirect 0.2 mg/dL (0.0-1.0); Bilirubin,Total 0.2 mg/dL (0.3-1.0); Blood Urea Nitrogen 8 mg/dL (6-20); Calcium 7.7 mg/dL (8.6-10.3); Carbon Dioxide 27 mEq/L (23-29); Chloride 102 mEq/L (98-107); Globulin 2.8 g/dL (2.4-3.5); Glucose 121 mg/dL (70-105); Osmolality,Calculated 278 (280-300); Potassium 3.7 mEq/L (3.5-5.1); Sodium 134 mEq/L (136-145); Total Protein 5.2 g/dL (6.4-8.9)
[2019-11-02] MEDS: D5 IVPB SCH ×2 (00:21→09:46)
[2019-11-02] MEDS: WATER IVPB SCH ×2 (00:21→09:46)
[2019-11-02] MEDS: AVIBACTAM IVPB SCH ×2 (00:21→09:46)
[2019-11-02] MEDS: CEFTAZIDIME IVPB SCH ×2 (00:21→09:46)
[2019-11-02] MEDS: Ipratropium/Albuterol Neb 3 ML IH SCH ×4 (03:06→20:33)
[2019-11-02] MEDS: Colistin (Colistimethate) 150 MG in 0.9 % Sodium Chloride 50 ML IVPB SCH (05:24)
[2019-11-02] MEDS: *HR* Heparin 5,000 UNIT/ML VIAL SQ SCH (05:24)
[2019-11-02 05:51] LABS: Basophils # 0.1 K/mcL (0.0-0.2); Basophils % 0.9 %; Hematocrit 29.3 % (35.3-44.9); Immature Granulocytes % 5.8 % (0-4); Lymphocytes # 1.1 K/mcL (0.6-4.6); Lymphocytes % 20.9 %; Mean Corpuscular HGB Conc 30.7 g/dL (31.6-35.5); Mean Corpuscular Hemoglobin 28.9 pg (28.0-33.3); Mean Corpuscular Volume 94.2 fL (83.0-100.0); Mean Platelet Volume 10.6 fL (9.4-12.4); Monocytes # 0.4 K/mcL (0.0-1.3); Monocytes % 6.7 %; Platelet Count 399 K/mcL (140-400); Red Blood Count 3.11 M/mcL (3.82-4.97); Red Cell Distribution Width 14.6 % (11.5-14.5); Segmented Neutrophils % 65.7 %; White Blood Count 5.4 K/mcL (4.3-11.1)
[2019-11-02 05:53] LABS: Neutrophils # 3.6 K/mcL (1.6-8.9)
[2019-11-02 06:14] LABS: Blood Urea Nitrogen 9 mg/dL (6-20); Calcium 8.1 mg/dL (8.6-10.3); Carbon Dioxide 29 mEq/L (23-29); Chloride 101 mEq/L (98-107); Glucose 104 mg/dL (70-105); Osmolality,Calculated 283 (280-300); Potassium 3.7 mEq/L (3.5-5.1); Sodium 137 mEq/L (136-145); Vancomycin,Trough 16 mcg/mL (5-10)
[2019-11-02 06:23] LABS: Platelet Estimate Normal (Normal)
[2019-11-02] MEDS: Nystatin SUSP 5 ML UD.LIQ PO SCH ×2 (07:36→11:55)
[2019-11-02] MEDS: Chlorhexidine Rinse 15 ML MOUTHWASH MM SCH (07:36)
[2019-11-02] MEDS: levETIRAcetam 500 MG/5 ML UDC GTUBE SCH (07:36)
[2019-11-02] MEDS: Valproic Acid Oral Soln 250 MG/5 ML UDC GTUBE SCH (07:36)
[2019-11-02] MEDS: polyethylene glycoL 3350 17 GM POWD.PACK PO SCH (07:38)
[2019-11-02] MEDS: Lacri-Lube 3.5 GM TUBE OP SCH (07:38)
[2019-11-02] MEDS ORDERED: Aminoglycoside Consult 1 EACH MC ONE (08:08)
[2019-11-02 08:54] LABS: ABG Base Excess -4 mEq/L (-2 to 3); ABG HCO3 23 mEq/L (21-27); ABG Oxygen Saturation 93 % (95-98); ABG PCO2 52 mmHg (35-45); ABG PH 7.26 pH Units (7.32-7.45); ABG PO2 77 mmHg (85-104); ABG TCO2 25 mEq/L (20-26); Blood Gas Modality ASSIST CONTROL; Blood Gas VT 480 cc
[2019-11-02 09:07] LABS: Basophils # 0.1 K/mcL (0.0-0.2); Basophils % 0.4 %; Hematocrit 34.5 % (35.3-44.9); Hemoglobin 10.2 g/dL (11.5-15.4); Immature Granulocytes % 10.9 % (0-4); Lymphocytes # 2.9 K/mcL (0.6-4.6); Lymphocytes % 25.3 %; Mean Corpuscular HGB Conc 29.6 g/dL (31.6-35.5); Mean Corpuscular Hemoglobin 29.1 pg (28.0-33.3); Mean Corpuscular Volume 98.6 fL (83.0-100.0); Mean Platelet Volume 10.4 fL (9.4-12.4); Monocytes # 0.7 K/mcL (0.0-1.3); Monocytes % 5.9 %; Neutrophils # 6.7 K/mcL (1.6-8.9); Platelet Count 570 K/mcL (140-400); Red Cell Distribution Width 14.7 % (11.5-14.5); Segmented Neutrophils % 57.5 %
[2019-11-02 09:10] LABS: White Blood Count 11.6 K/mcL (4.3-11.1)
[2019-11-02 09:27] LABS: BUN/Creatinine Ratio 43 (6-26); Blood Urea Nitrogen 10 mg/dL (6-20); Carbon Dioxide 22 mEq/L (23-29); Chloride 100 mEq/L (98-107); Glucose 180 mg/dL (70-105); Osmolality,Calculated 284 (280-300); Potassium 4.3 mEq/L (3.5-5.1); Sodium 135 mEq/L (136-145); eGFR For African Americans > 60 (> 60); eGFR For Non-African Americans > 60 (> 60)
[2019-11-02 09:42] LABS: Platelet Estimate Increased (Normal)
[2019-11-02 09:43] LABS: Anisocytosis 1+ (Not Present)
[2019-11-02] MEDS ORDERED: MetroNIDAZOLE 500 MG/100 ML 500 MG/100 ML BAG IVPB SCH (10:03)
[2019-11-02] MEDS ORDERED: Oseltamivir 6 MG/ML MLS GTUBE SCH (10:15)
[2019-11-02] MEDS: Dexmedetomidine HCl 400 MCG/100 ML MLS IVC SCH ×2 (10:26→18:33)
[2019-11-02] MEDS: *HR* FentaNYL (PF) 100 MCG/2 ML VIAL IVP PRN ×4 (13:32→16:28)
[2019-11-02] MEDS: Morphine Sulfate Oral CONC 10 MG/0.5 ML ORAL.SYG SL PRN ×4 (14:14→21:13)
[2019-11-02] MEDS ORDERED: Haloperidol Lactate 5 MG/ML VIAL IVP PRN (16:23)
[2019-11-02] MEDS: FentaNYL (PF) 1,000 MCG in 0.9 % Sodium Chloride 80 ML IVC SCH (17:20)
[2019-11-03] MEDS: Morphine Sulfate Oral CONC 10 MG/0.5 ML ORAL.SYG SL PRN ×3 (00:03→04:33)
[2019-11-03] MEDS: *HR* LORazepam 2 MG/ML VIAL IVP PRN ×2 (01:29→04:34)
[2019-11-03] MEDS: Ipratropium/Albuterol Neb 3 ML IH SCH ×2 (01:35→11:12)
[2019-11-03] MEDS: Dexmedetomidine HCl 400 MCG/100 ML MLS IVC SCH ×3 (02:18→23:13)
[2019-11-03] MEDS: Lacri-Lube 3.5 GM TUBE OP SCH ×3 (06:21→21:54)
[2019-11-03] MEDS ORDERED: Haloperidol Lactate 5 MG/ML VIAL IVP PRN (10:31)
[2019-11-03] MEDS ORDERED: *HR* LORazepam 2 MG/ML VIAL IVP PRN (10:32)
[2019-11-03] MEDS ORDERED: Ipratropium/Albuterol Neb 3 ML IH PRN (10:36)
[2019-11-03] MEDS: *HR* LORazepam 2 MG/ML VIAL IVP SCH ×3 (12:27→21:21)
[2019-11-03] MEDS: Haloperidol Lactate 5 MG/ML VIAL IVP SCH ×3 (12:27→23:18)
[2019-11-03] MEDS: *HR* FentaNYL (PF) 100 MCG/2 ML VIAL IVP PRN ×3 (15:10→21:47)
[2019-11-03 21:25] VITALS: BP 102/68
[2019-11-04] MEDS: *HR* LORazepam 2 MG/ML VIAL IVP SCH ×3 (00:14→08:35)
[2019-11-04] MEDS: FentaNYL (PF) 1,000 MCG in 0.9 % Sodium Chloride 80 ML IVC SCH (01:21)
[2019-11-04] MEDS: Haloperidol Lactate 5 MG/ML VIAL IVP SCH ×2 (05:40→10:57)
[2019-11-04] MEDS: Dexmedetomidine HCl 400 MCG/100 ML MLS IVC SCH (07:04)
[2019-11-04] MEDS: *HR* FentaNYL (PF) 100 MCG/2 ML VIAL IVP PRN (08:35)
[2019-11-04] MEDS: Lacri-Lube 3.5 GM TUBE OP SCH (08:49)
[2019-11-04] MEDS ORDERED: Scopolamine Patch 1.5 MG PATCH.TD72 TD SCH (09:00)
== END 2019-11-04 11:05 | disposition hospice, inpatient (51) | DRG 720 ==
LOC: 2NNU → SUATTDRO 03:54 → 3NENU 10-27 14:51
PROVIDERS: ADMIT Internal Medicine; ATTEND Internal Medicine

== ENCOUNTER 2019-11-04 08:58 | Inpatient (IN) ==
[2019-11-04] MEDS ORDERED: *HR* LORazepam 2 MG/ML VIAL IVP PRN (09:29)
[2019-11-04] MEDS: *HR* LORazepam 2 MG/ML VIAL IVP SCH ×4 (12:31→23:42)
[2019-11-04] MEDS: FentaNYL (PF) 1,000 MCG in 0.9 % Sodium Chloride 80 ML IVC SCH ×2 (13:18→21:04)
[2019-11-04] MEDS: Haloperidol Lactate 5 MG/ML VIAL IVP SCH ×2 (18:28→23:41)
[2019-11-04] MEDS: Acetaminophen 650 MG RECTAL SUPP RC PRN (21:06)
[2019-11-04] MEDS: *HR* FentaNYL (PF) 100 MCG/2 ML VIAL IVP PRN (21:46)
[2019-11-05] MEDS: FentaNYL (PF) 1,000 MCG in 0.9 % Sodium Chloride 80 ML IVC SCH (03:21)
[2019-11-05] MEDS: Haloperidol Lactate 5 MG/ML VIAL IVP SCH ×3 (04:55→17:23)
[2019-11-05] MEDS: *HR* LORazepam 2 MG/ML VIAL IVP SCH ×5 (04:55→19:53)
[2019-11-05] MEDS: Acetaminophen 650 MG RECTAL SUPP RC PRN ×2 (08:31→22:40)
[2019-11-05] MEDS: *HR* FentaNYL (PF) 100 MCG/2 ML VIAL IVP PRN (22:53)
[2019-11-06] MEDS: *HR* LORazepam 2 MG/ML VIAL IVP SCH ×7 (00:02→23:43)
[2019-11-06] MEDS: Haloperidol Lactate 5 MG/ML VIAL IVP SCH ×5 (00:03→23:43)
[2019-11-06] MEDS: *HR* FentaNYL (PF) 100 MCG/2 ML VIAL IVP PRN (00:37)
[2019-11-06] MEDS: Acetaminophen 650 MG RECTAL SUPP RC PRN ×2 (08:03→17:44)
[2019-11-07] MEDS: *HR* FentaNYL (PF) 100 MCG/2 ML VIAL IVP PRN ×3 (01:30→15:25)
[2019-11-07] MEDS: *HR* LORazepam 2 MG/ML VIAL IVP SCH ×5 (05:10→20:13)
[2019-11-07] MEDS: Haloperidol Lactate 5 MG/ML VIAL IVP SCH ×3 (05:10→17:53)
[2019-11-07] MEDS: Acetaminophen 650 MG RECTAL SUPP RC PRN ×3 (08:23→21:14)
[2019-11-07] MEDS ORDERED: Scopolamine Patch 1.5 MG PATCH.TD72 TD SCH (10:30)
[2019-11-08] MEDS: *HR* LORazepam 2 MG/ML VIAL IVP SCH ×7 (04:03→23:54)
[2019-11-08] MEDS: Haloperidol Lactate 5 MG/ML VIAL IVP SCH ×5 (06:04→21:11)
[2019-11-08] MEDS: *HR* FentaNYL (PF) 100 MCG/2 ML VIAL IVP PRN ×9 (07:58→22:24)
[2019-11-08 19:07] VITALS: BP 117/84
[2019-11-08] MEDS: Haloperidol Lactate 5 MG/ML VIAL IVP PRN (23:55)
[2019-11-09] MEDS: *HR* FentaNYL (PF) 100 MCG/2 ML VIAL IVP PRN ×4 (01:04→04:19)
[2019-11-09] MEDS: *HR* LORazepam 2 MG/ML VIAL IVP SCH (04:04)
[2019-11-09] MEDS: Haloperidol Lactate 5 MG/ML VIAL IVP PRN (04:04)
== END 2019-11-09 04:34 | disposition expired | DRG 951 ==
LOC: 2ANU 11:38
PROVIDERS: ADMIT Internal Medicine Hospice and Palliative Medicine; ATTEND Internal Medicine Hospice and Palliative Medicine